=== PATIENT | male | born 1980 | race Caucasian/White ===

== ENCOUNTER 2024-03-07 18:37 | Emergency (ER) | payer BC ==
--- NOTE | 2024-03-07 18:43 | ED ---
General Adult HPI - General Stated complaint: Stroke - History of Present Illness Initial comments: History limited by acuity of condition, patient presents via EMS today for new neurodeficits. Was having a few beers with his friends when he had sudden onset slurred speech and right upper extremity numbness. On arrival to emergency department patient endorses numbness of the right upper extremity, dizziness. Has right gaze deviation. Mild slurred speech. Decreased sensation to RUE. Does not take blood thinners. Hx HTN no longer on medications. No prior CVA. - Related Data Allergies Allergy/AdvReac Type Severity Reaction Status Date / Time No Known Allergies Allergy Verified 03/07/24 18:44 Review of Systems ROS Statement: Those systems with pertinent positive or pertinent negative responses have been documented in the HPI. ROS Other: All systems not noted in ROS Statement are negative. Limitations: ROS unobtainable due to patients medical condition General Exam - General Exam Comments Initial Comments: PE: CONSTITUTIONAL: Ill-appearing, awake, able to answer questions and follow commands SKIN: Warm, dry, no jaundice, hives or petechiae EYES: Pupils are equally round, right gaze deviation, patient unable to overcome right gaze deviation with left eye, extraocular movements intact with right eye clear conjunctiva, non-icteric sclera HENT: Normocephalic, atraumatic, moist mucus membranes, oropharynx clear without exudates NECK: , Full range of motion, normal appearance PULMONARY: Clear to auscultation without wheezes, rhonchi, or rales, normal e xcursion, no accessory muscle use and no stridor CARDIOVASCULAR: Regular rate, rhythm, normal S1 and S2. No appreciated murmurs, rubs or gallops. Strong radial pulses with intact distal perfusion. No lower extremity edema GASTROINTESTINAL: Soft, non-tender, non-distended, no palpable masses, no rebo und or guarding. No hepatosplenomegaly MUSCULOSKELETAL: Extremities have no gross deformity, no edema, redness, or swelling. NEUROLOGIC: [_a/o x 3, GCS 15, normal mentation and mild slurred speech, cranial nerves: II (visual brunner without defects), III, IV and pupils equal round reactive to light, as noted above left gaze deviation, unable to overcome with left eye, all extraocular was intact the right eye V (intact facial sensation and jaw opening), VII-slight right facial droop, IX and X (normal palate movement, midline uvula, mild dysarthria, XII (midline tongue protrusion). Motor strength is 5/5 in all extremities. No abnormal movements. Normal muscle tone. Sensation to light touch absent in the right upper extremity, otherwise intact in bilateral lower extremities and left upper extremity, NIH 6 PSYCHIATRIC:_normal mood and affect, thought process is clear and linear Course Vital Signs 03/07/24 03/07/24 03/07/24 18:41 18:55 19:05 Temperature 98.7 F Pulse Rate 101 H 80 76 Respiratory 18 18 18 Rate Blood Pressure 216/146 204/134 188/129 O2 Sat by Pulse 97 97 97 Oximetry 03/07/24 19:09 Temperature Pulse Rate Respiratory Rate Blood Pressure 185/128 O2 Sat by Pulse Oximetry - Reevaluation(s) Reevaluation #1: Patient seen and evaluated upon arrival to the emergency department blood pressure 216/101. Patient has rightward gaze deviation, is awake and alert, slight dysarthria, mild right facial droop, decree sensation to right touch in the right upper extremity, NIH 6. A code thrombolytic was paged prior to patient's arrival. Currently pending discussion with neurointerventionalist, patient transferred ported to CT 03/07/24 18:42 Reevaluation #2: Patient noted to have intracranial hemorrhage. Ordered nicardipine for blood pressure control. tNK cancelled. 03/07/24 18:57 03/07/24 22:29 EKG Findings - EKG Comments: EKG Findings:: Sinus rhythm, rate 77 beats minute, ME interval 167 ms, QRS duration 116 ms, QT/QTc 431/ 463 ms, left axis deviation, no ST elevations or depressions, no arrhythmia Medical Decision Making - Medical Decision Making Was pt. sent in by a medical professional or institution (, PA, FURNITURE INSTALLER, urgent care, hospital, or half-way...) When possible be specific @ -No Did you speak to anyone other than the patient for history (EMS, parent, family, police, friend...)? What history was obtained from this source @ -Spoke with EMS personnel Did you review nursing and triage notes (agree or disagree)? Why? @ -I reviewed and agree with nursing and triage notes- Yes, states the patient arrives with complaint of CVA right-sided deficits, patient seen and assessed immediately upon arrival Were old charts reviewed (outside hosp., previous admission, EMS record, old EKG, old radiological studies, urgent care reports/EKG's, half-way records)? Report findings @ -No old charts were reviewed Differential Diagnosis (chest pain, altered mental status, abdominal pain women, abdominal pain men, vaginal bleeding, weakness, fever, dyspnea, syncope, headache, dizziness, GI bleed, back pain, seizure, CVA, palpatations, mental health, musculoskeletal)? @Differential CVA Ischemic stroke, hemorrhagic stroke, brain tumor, atypical migraine, Wernicke's encephalopathy, seizure, multiple sclerosis, meningitis, encephalitis, hypoglycemia, electrolytes disturbance,.... This is not meant to be an all- inclusive list EKG interpreted by me (3pts min.). @ -As above X-rays interpreted by me (1pt min.). @ -Unable to be performed prior to transfer CT interpreted by me (1pt min.). @ -Evidence of hemorrhage visible at level of the elsy U/S interpreted by me (1pt. min.). @ -None done What testing was considered but not performed or refused? (CT, X-rays, U/S, labs)? Why? @ -None What meds were considered but not given or refused? Why? @ - Considered hypertonic saline however discussed with Dr. Glover, recommends against hypertonic at this point Did you discuss the management of the patient with other professionals (professionals i.e. , PA, FURNITURE INSTALLER, lab, RT, psych nurse, clinical social work therapist, risk control specialist, teacher, community reinvestment act officer, pillowcase turner)? Give summary @ -Discussed with neurointerventionalist- Dr. Glover, recs SBP <160 with nicardipene drip and transfer to [facility] for admit to ICU Was smoking cessation discussed for >3mins.? @ -No Was critical care preformed (if so, how long)? @ Yes 35 minutes Were there social determinants of health that impacted care today? How? (Homelessness, low income, unemployed, alcoholism, drug addiction, transportatio n, low edu. Level, literacy, decrease access to med. care, mcc, rehab)? @ -No Was there de-escalation of care discussed even if they declined (Discuss DNR or withdrawal of care, Hospice)? @ -No What co-morbidities impacted this encounter? (DM, HTN, Smoking, COPD, CAD, Cancer, CVA, ARF, Chemo, Hep., AIDS, mental health diagnosis, sleep apnea, morbid obesity)? @ -HTN Was patient admitted / discharged? Hospital course, mention meds given and route, prescriptions, significant lab abnormalities, going to OR and other pertinent info. @ -Hospital course transfer to [facility]- Patient is a 43-year-old gentleman past medical history of hypertension who presented today for new onset neurodeficits. Began 1 hour prior to arrival. Patient immediately seen and assessed upon arrival. Right gaze deviation, Mild dysarthria, slight right facial droop, RUE numbness, NIH 6, BP 216/101 on arrival, verbal order given for 10 mg labetolol. Pt immediately taken to CT scanner, noted to have intracranial hemorrhage at level of elsy. Nicardipine ordered. Discussed with Dr. Glover, recommendations as above. Patient had a bed elevated to 30 degrees. Updated patient and to findings and plan for immediate transfer to [facility]. Patient agreeable with plan. Respirations unlabored, protecting airway, neuro exam stable. Discussed with Dr. Abdi, [facility], who accepts for transfer. Pt stabilized for tranport and transported immediately after initiating cardene drip for definitive care. Undiagnosed new problem with uncertain prognosis? @ -Yes Drug Therapy requiring intensive monitoring for toxicity (Heparin, Nitro, Insulin, Cardizem)? @ -Nicardipene Were any procedures done? @ -No Diagnosis/symptom? @ -Intracranial hemorrhage Acute, or Chronic, or Acute on Chronic? @ -Acute Uncomplicated (without systemic symptoms) or Complicated (systemic symptoms)? @ -Complicated Side effects of treatment? @ -No Exacerbation, Progression, or Severe Exacerbation? @ -No Poses a threat to life or bodily function? How? (Chest pain, [place], [place], pneumonia, PE, COPD, DKA, ARF, appy, cholecystitis, CVA, Diverticulitis, Homicidal, Suicidal, threat to staff... and all critical care pts) @ -Yes, as above, could cause permanent neruologic deficits - Lab Data Result diagrams: 03/07/24 18:45 03/07/24 18:45 Lab Results 03/07/24 03/07/24 03/07/24 Range/Units 18:43 18:45 18:45 WBC 7.8 (3.8-10.6) k/uL RBC 4.98 (4.30-5.90) m/uL Hgb 16.3 (13.0-17.5) gm/dL Hct 48.0 (39.0-53.0) % MCV 96.4 (80.0-100.0) fL MCH 32.8 (25.0-35.0) pg MCHC 34.0 (31.0-37.0) g/dL RDW 12.2 (11.5-15.5) % Plt Count 235 (150-450) k/uL MPV 7.0 Neutrophils % 54 % Lymphocytes % 32 % Monocytes % 8 % Eosinophils % 4 % Basophils % 1 % Neutrophils # 4.2 (1.3-7.7) k/uL Lymphocytes # 2.5 (1.0-4.8) k/uL Monocytes # 0.6 (0-1.0) k/uL Eosinophils # 0.3 (0-0.7) k/uL Basophils # 0.0 (0-0.2) k/uL PT 10.1 (10.0-12.5) sec INR 0.9 (<1.2) APTT 23.7 (22.0-30.0) sec Sodium (137-145) mmol/L Potassium (3.5-5.1) mmol/L Chloride (98-107) mmol/L Carbon Dioxide (22-30) mmol/L Anion Gap mmol/L BUN (9-20) mg/dL Creatinine (0.66-1.25) mg/dL Est GFR (CKD-EPI)AfAm (>60 ml/min/1.73 sqM) Est GFR (CKD-EPI)NonAf (>60 ml/min/1.73 sqM) Glucose (74-99) mg/dL POC Glucose (mg/dL) 131 H (70-110) mg/dL POC Glu Wind Farm Engineer ID [place] [facility] Calcium (8.4-10.2) mg/dL Total Bilirubin (0.2-1.3) mg/dL AST (17-59) U/L ALT (4-49) U/L Alkaline Phosphatase (38-126) U/L Creatine Kinase (55-170) U/L Troponin I (0.000-0.034) ng/mL Total Protein (6.3-8.2) g/dL Albumin (3.5-5.0) g/dL 03/07/24 03/07/24 Range/Units 18:45 18:45 WBC (3.8-10.6) k/uL RBC (4.30-5.90) m/uL Hgb (13.0-17.5) gm/dL Hct (39.0-53.0) % MCV (80.0-100.0) fL MCH (25.0-35.0) pg MCHC (31.0-37.0) g/dL RDW (11.5-15.5) % Plt Count (150-450) k/uL MPV Neutrophils % % Lymphocytes % % Monocytes % % Eosinophils % % Basophils % % Neutrophils # (1.3-7.7) k/uL Lymphocytes # (1.0-4.8) k/uL Monocytes # (0-1.0) k/uL Eosinophils # (0-0.7) k/uL Basophils # (0-0.2) k/uL PT (10.0-12.5) sec INR (<1.2) APTT (22.0-30.0) sec Sodium 135 L (137-145) mmol/L Potassium 4.0 (3.5-5.1) mmol/L Chloride 102 (98-107) mmol/L Carbon Dioxide 27 (22-30) mmol/L Anion Gap 6 mmol/L BUN 16 (9-20) mg/dL Creatinine 1.00 (0.66-1.25) mg/dL Est GFR (CKD-EPI)AfAm >90 (>60 ml/min/1.73 sqM) Est GFR (CKD-EPI)NonAf >90 (>60 ml/min/1.73 sqM) Glucose 135 H (74-99) mg/dL POC Glucose (mg/dL) (70-110) mg/dL POC Glu Wind Farm Engineer ID Calcium 9.1 (8.4-10.2) mg/dL Total Bilirubin 0.7 (0.2-1.3) mg/dL AST 44 (17-59) U/L ALT 41 (4-49) U/L Alkaline Phosphatase 70 (38-126) U/L Creatine Kinase 67 (55-170) U/L Troponin I 0.013 (0.000-0.034) ng/mL Total Protein 7.2 (6.3-8.2) g/dL Albumin 4.3 (3.5-5.0) g/dL Critical Care Time Critical Care Time: Yes Total Critical Care Time: 35 Disposition Clinical Impression: Hemorrhagic cerebrovascular accident (CVA) Disposition: DC/TRNS INTERMEDIATE CARE FAC Referrals: None,Stated [REFERRING] - 1-2 days - Out of Hospital Transfer - Req. Specs Out of Hospital Transfer - Requested Specifics: Other Emergency Center
[2024-03-07 18:45] LABS: Glucose,Whole Blood 131 mg/dL (70-110)
[2024-03-07 18:53] VITALS: RESP 18; TEMP 98.7
--- NOTE | 2024-03-07 18:55 | CT ---
EXAMINATION TYPE: CODE STROKE: CT brain wo contr CT DLP: 1231.6 mGycm, Automated exposure control for dose reduction was used. DATE OF EXAM: 03/07/2024 6:51 PM COMPARISON: None. CLINICAL INDICATION: Male, 43 years old with history of Neuro deficit, acute, stroke suspected, slurr ed speech, right side weakness TECHNIQUE: Brain: Axial CT images of the brain were obtained with coronal and sagittal reformats created and rev iewed. Contrast used: None. Oral contrast used: None. FINDINGS: Brain: Extra-axial spaces: No abnormal extra-axial fluid collections. Ventricular system: Within normal limits Cerebral parenchyma: High density blood products seen within the elsy bilaterally left greater than r ight. No acute intraparenchymal hemorrhage or mass effect. The pollack-white junction is well different iated. Cerebellum: Unremarkable. Mass effect: No evidence of midline shift. Intracranial vasculature: unremarkable Soft tissues: Normal. Calvarium/osseous structures: No depressed skull fracture. Paranasal sinuses and mastoid air cells: Mild scattered paranasal sinus disease. Visualized orbits: Orbital contents are intact. IMPRESSION: Brainstem hemorrhage stroke involving the bilateral elsy, left greater than right. MRI Findings communicated to Dr. Laury Gore MD on 03/07/2024 6:[address] Toni Mcarthur.
[2024-03-07] MEDS: LABETALOL 5 MG/ML VIAL MDV IVP STA (18:58)
[2024-03-07 19:00] LABS: Basophils % (A) 1 %; Eosinophils # (A) 0.3 k/uL (0-0.7); Eosinophils % (A) 4 %; HGB 16.3 gm/dL (13.0-17.5); Lymphocytes # (A) 2.5 k/uL (1.0-4.8); Lymphocytes % (A) 32 %; MCH 32.8 pg (25.0-35.0); MCV 96.4 fL (80.0-100.0); Monocytes # (A) 0.6 k/uL (0-1.0); Monocytes % (A) 8 %; Neutrophils # (A) 4.2 k/uL (1.3-7.7); Neutrophils % (A) 54 %; Platelet Count 235 k/uL (150-450); RBC 4.98 m/uL (4.30-5.90); RDW 12.2 % (11.5-15.5); WBC 7.8 k/uL (3.8-10.6)
[2024-03-07 19:07] VITALS: PULSE 76
[2024-03-07] MEDS: niCARdipine 20 MG in SODIUM CHLORIDE 0.9% 192 ML IV SCH (19:07)
[2024-03-07 19:08] LABS: ALT 41 U/L (4-49); AST 44 U/L (17-59); African American GFR (CKD) >90 (>60 ml/min/1.73 sqM); Albumin 4.3 g/dL (3.5-5.0); Alkaline Phosphatase 70 U/L (38-126); Anion Gap 6 mmol/L; Blood Urea Nitrogen 16 mg/dL (9-20); Calcium 9.1 mg/dL (8.4-10.2); Carbon Dioxide 27 mmol/L (22-30); Chloride 102 mmol/L (98-107); Creatine Kinase 67 U/L (55-170); Glucose 135 mg/dL (74-99); Non-African American GFR(CKD) >90 (>60 ml/min/1.73 sqM); Sodium 135 mmol/L (137-145); Total Bilirubin 0.7 mg/dL (0.2-1.3); Total Protein 7.2 g/dL (6.3-8.2)
[2024-03-07] MEDS: SODIUM CHLORIDE 0.9% 500 ML 500 ML IV STA (19:09)
--- NOTE | 2024-03-07 19:10 | CT ---
EXAMINATION TYPE: CT angio head neck CT DLP: 714 mGycm, Automated exposure control for dose reduction was used. DATE OF EXAM: 03/07/2024 7:06 PM COMPARISON: CT same day. CLINICAL INDICATION: Male, 43 years old with history of Neuro deficit, acute, stroke suspected; [facility], TECHNIQUE: Axially acquired helical CT angiogram of the head and neck was obtained with contrast. Axi al images are supplemented with 3D reconstructions and MIP images which were post-processed at an in dependent workstation. NASCET criteria used. Contrast used: 605 cc [id number] Oral contrast used: None. FINDINGS: CTA HEAD: No evidence of acute intracranial hemorrhage, mass effect, or midline shift. The ventricles, sulci, a nd cisterns are unremarkable. Brainstem hemorrhagic stroke remains similar to prior CT. The visualized portions of the internal carotid arteries, middle cerebral arteries, anterior cerebral arteries, and posterior cerebral arteries are patent. The basilar and vertebral arteries are patent. CTA NECK: Right Carotid System: The common carotid artery and external carotid artery are patent. The carotid bifurcation demonstrate s no evidence of hemodynamically significant stenosis. The remaining portions of the internal carotid artery demonstrate normal size without significant narrowing. Left Carotid System: The common carotid artery and external carotid artery are patent. The carotid bifurcation demonstrate s no evidence of hemodynamically significant stenosis. The remaining portions of the internal carotid artery demonstrate normal size without significant narrowing. Vertebral arteries are patent without evidence hemodynamically significant stenosis. There is a three-vessel aortic arch. The origins of the great vessels are patent. No evidence of hemo dynamically significant stenosis. Upper thorax: IMPRESSION: Sammie hemorrhagic stroke as seen on same day CT. No evidence for active extravasation. No evidence for occlusion or aneurysm.
[2024-03-07 19:11] VITALS: BP 185/128
[2024-03-07 19:21] LABS: INR 0.9 (<1.2); Partial Thromboplastin Time 23.7 sec (22.0-30.0); Prothrombin Time 10.1 sec (10.0-12.5)
== END 2024-03-07 19:17 ==
LOC: EC 18:37
DX: I63.9 Cerebral infarction, unspecified
CPT/HCPCS: 36415; 70450; 70496; 70498; 80053; 82550; 84484; 85025; 85610; 85730; 93005; 96374; 96375; 99291